=== PATIENT | male | born 1990 | race Caucasian/White ===

== ENCOUNTER 2017-12-26 09:35 | Emergency (ER) | payer OTHER, BC ==
[2017-12-26] MEDS: MORPHINE 4 MG/ML 1ML VIAL/SYRINGE (J2270) IV (12:42)
== END 2017-12-26 13:46 | disposition left against medical advice (07) ==
LOC: M ED 09:35
DX: S12.601A Unspecified nondisplaced fracture of seventh cervical vertebra, initial encounter for closed fracture (principal); S40.812A Abrasion of left upper arm, initial encounter; V49.49XA Driver injured in collision with other motor vehicles in traffic accident, initial encounter; Y92.410 Unspecified street and highway as the place of occurrence of the external cause; K21.9 Gastro-esophageal reflux disease without esophagitis; F33.9 Major depressive disorder, recurrent, unspecified; F41.9 Anxiety disorder, unspecified
CPT/HCPCS: J2270

== ENCOUNTER → 2019-01-28 | Outpatient (REF) | payer OTHER ==
[~2019-01-28] MED LIST: ATIV0.5T OR; OMEP20TA7 OR
[2019-01-28 12:49] LABS: BASO % 0.9 % (0.0-1.0); EOS % 0.4 % (0.0-3.0); HEMATOCRIT 43.6 % (42.0-52.0); HEMOGLOBIN 14.8 g/dl (13.5-17.5); LYMPH # 1.1 10^3/uL (1.5-5.0); LYMPH % 23.7 % (24.0-44.0); MEAN CORPUSCULAR HEMOGLOBIN 29.7 pg (27.0-33.0); MEAN CORPUSCULAR HGB CONC 33.9 g/dl (32.0-36.5); MEAN CORPUSCULAR VOLUME 87.6 fl (80.0-96.0); MONO # 0.4 10^3/uL (0.0-0.8); MONO % 7.7 % (0.0-5.0); NEUTROPHILS # 3.1 10^3/uL (1.5-8.5); NEUTROPHILS % 67.1 % (36.0-66.0); PLATELET COUNT, AUTOMATED 188 10^3/uL (150-450); RED BLOOD COUNT 4.98 10^6/uL (4.30-6.10); WHITE BLOOD COUNT 4.6 10^3/uL (4.0-10.0)
[2019-01-28 13:39] LABS: ALBUMIN 4.2 GM/DL (3.2-5.2); ALT/SGPT 29 U/L (12-78); BILIRUBIN,TOTAL 0.6 MG/DL (0.2-1.0); BLOOD UREA NITROGEN 6 MG/DL (7-18); CARBON DIOXIDE LEVEL 27 MEQ/L (21-32); CHLORIDE LEVEL 103 MEQ/L (98-107); CREATININE FOR GFR 1.17 MG/DL (0.70-1.30); GLOMERULAR FILTRATION RATE > 60.0 (>60); GLUCOSE, FASTING 148 MG/DL (70-100); POTASSIUM SERUM 4.9 MEQ/L (3.5-5.1); SODIUM LEVEL 141 MEQ/L (136-145); TOTAL PROTEIN 7.4 GM/DL (6.4-8.2)
== END ==
LOC: M SFHCADAM 10:59
PROVIDERS: ATTEND Physician Assistant Medical
DX: E60 Dietary zinc deficiency (principal); F12.10 Cannabis abuse, uncomplicated; E61.2 Magnesium deficiency; F15.10 Other stimulant abuse, uncomplicated; F41.0 Panic disorder [episodic paroxysmal anxiety]